=== PATIENT | male | born 1985 | race Caucasian/White ===

== ENCOUNTER → 2018-05-19 | Outpatient (CLI) | payer MEDICARE, OTHER ==
[2018-05-19 14:16] LABS: ALT 81 U/L (21-72); AST 50 U/L (17-59); Albumin 4.8 g/dL (3.5-5.0); Alkaline Phosphatase 56 U/L (38-126); Anion Gap 9 mmol/L; Blood Urea Nitrogen 14 mg/dL (9-20); Calcium 9.8 mg/dL (8.4-10.2); Carbon Dioxide 26 mmol/L (22-30); Chloride 106 mmol/L (98-107); Cholesterol 315 mg/dL (<200); Glucose 100 mg/dL (74-99); HDL Cholesterol 55 mg/dL (40-60); LDL Cholesterol,Calculated 224 mg/dL (0-99); Potassium 4.7 mmol/L (3.5-5.1); Sodium 141 mmol/L (137-145); Total Bilirubin 0.9 mg/dL (0.2-1.3); Total Protein 7.6 g/dL (6.3-8.2); Triglycerides 179 mg/dL (<150)
[2018-05-19 14:44] LABS: Basophils # (A) 0.1 k/uL (0-0.2); Basophils % (A) 1 %; Eosinophils # (A) 0.3 k/uL (0-0.7); Eosinophils % (A) 4 %; HCT 51.1 % (39.0-53.0); HGB 17.2 gm/dL (13.0-17.5); Lymphocytes # (A) 2.5 k/uL (1.0-4.8); Lymphocytes % (A) 31 %; MCH 29.4 pg (25.0-35.0); MCHC 33.6 g/dL (31.0-37.0); MCV 87.4 fL (80.0-100.0); Mean Platelet Volume 7.4; Monocytes # (A) 0.6 k/uL (0-1.0); Monocytes % (A) 7 %; Neutrophils # (A) 4.6 k/uL (1.3-7.7); Neutrophils % (A) 56 %; Platelet Count 233 k/uL (150-450); RBC 5.85 m/uL (4.30-5.90); RDW 13.8 % (11.5-15.5); WBC 8.1 k/uL (3.8-10.6)
[2018-05-19 19:37] LABS: Urine Alcohol Negative (Negative); Urine Barbiturate Negative (Negative); Urine Cocaine Negative (Negative); Urine Methadone Negative (Negative); Urine Opiates Negative (Negative); Urine Phencyclidine Negative (Negative)
[2018-05-19 20:17] LABS: Hemoglobin A1C 4.7 % (4.0-6.0)
== END | disposition home or self-care (01) ==
LOC: LABWHC1 13:04
PROVIDERS: ATTEND Nurse Practitioner Adult Health
DX: Z00.00 Encounter for general adult medical examination without abnormal findings (principal); R51 Headache; F10.19 Alcohol abuse with unspecified alcohol-induced disorder; F84.5 Asperger's syndrome; R53.83 Other fatigue; Z71.51 Drug abuse counseling and surveillance of drug abuser
CPT/HCPCS: 36415; 80053; 80061; 80306; 83036; 85025

== ENCOUNTER → 2018-11-30 | Outpatient (CLI) | payer MEDICARE ==
[2018-11-30 18:34] LABS: Anion Gap 6.6 mmol/L (4.00-12.00); Calcium 10.1 mg/dL (8.7-10.3); Carbon Dioxide 26.4 mmol/L (21.6-31.8); Potassium 4.2 mmol/L (3.5-5.5)
== END | disposition home or self-care (01) ==
LOC: LABWHC1 12:19
PROVIDERS: ATTEND Nurse Practitioner Adult Health
DX: E78.5 Hyperlipidemia, unspecified (principal)
CPT/HCPCS: 36415; 80048; 80061

== ENCOUNTER → 2020-07-04 | Outpatient (CLI) | payer MEDICARE ==
--- NOTE | 2020-07-04 08:12 | US ---
EXAMINATION TYPE: US liver DATE OF EXAM: 07/04/2020 COMPARISON: NONE CLINICAL HISTORY: R94.5 ABN LIVER FUNCTION TESTS. known elevated labs, patient states alcohol abuse EXAM MEASUREMENTS: Liver Length: 19.8 cm Gallbladder Wall: 0.2 cm CBD: 0.5 cm Right Kidney: 11.6 x 4.4 x 5.8 cm Pancreas: wnl Liver: very difficult to penetrate, enlarged Gallbladder: wnl Evidence for sonographic Soto's sign: no CBD: wnl Right Kidney: wnl IMPRESSION: Fatty liver.
== END | disposition home or self-care (01) ==
LOC: RADUSWWP 07:35
PROVIDERS: ATTEND Nurse Practitioner Adult Health
DX: K76.0 Fatty (change of) liver, not elsewhere classified (principal)
CPT/HCPCS: 76705

== ENCOUNTER → 2020-07-16 | Outpatient (CLI) | payer MEDICARE ==
--- NOTE | 2020-07-16 14:31 | CT ---
EXAMINATION TYPE: CT abdomen w con DATE OF EXAM: 07/16/2020 COMPARISON: Ultrasound liver 07/04/2020. HISTORY: Elevated LFT's CT DLP: 1281.7 mGycm Automated exposure control for dose reduction was used. TECHNIQUE: Helical acquisition of images was performed from the lung bases through the top of iliac crest to include entire abdomen. CONTRAST: Performed with Oral Contrast and with IV Contrast, patient injected with 100 mL of Isovue 300. FINDINGS: LUNG BASES: Normal. LIVER: Fatty liver diffusely. No focal lesion. BILIARY SYSTEM: No intrahepatic or extrahepatic biliary ductal dilatation. Gallbladder is contracted. PANCREAS: Normal. SPLEEN: Normal. Splenule. ADRENALS: Normal. KIDNEYS: Normal. BOWEL: No obstruction or thickening. PERITONEUM: No pneumoperitoneum. No free fluid. LYMPH NODES: No lymphadenopathy. VASCULATURE: No abdominal aortic aneurysm. MUSCULOSKELETAL: Degenerative changes of the spine. IMPRESSION: Fatty liver.
== END | disposition home or self-care (01) ==
LOC: RADCTMAIN 07:46
PROVIDERS: ATTEND Nurse Practitioner Adult Health
DX: K76.0 Fatty (change of) liver, not elsewhere classified (principal)
CPT/HCPCS: 74160; Q9967